=== PATIENT | female | born 1960 | race Caucasian/White ===

== ENCOUNTER 2020-05-20 22:25 | Emergency (ER) | payer BC ==
[2020-05-20 22:40] VITALS: BP 145/85; PULSE 79
--- NOTE | 2020-05-20 23:07 | EDM.PDOC ---
ED HPI GENERAL MEDICAL PROBLEM - General Chief Complaint: Upper Extremity Injury/Pain Stated Complaint: SORE RT THUMB Time Seen by Provider: 05/20/20 22:45 Source of Information: Reports: Patient History Limitations: Reports: No Limitations - History of Present Illness INITIAL COMMENTS - FREE TEXT/NARRATIVE: 60-year-old female with a developing infection around the thumbnail on the right hand for the past 2 days. It started when she got poked underneath the fingernail while doing dishes, and since that time she has had increased inflammation and redness and pain. Onset: Gradual Duration: Day(s): (3 days) Location: Reports: Upper Extremity, Right Right Finger-Thumb Pain Score (Numeric/FACES): 4 - Related Data Allergies Allergy/AdvReac Type Severity Reaction Status Date / Time No Known Allergies Allergy Verified 05/20/20 22:51 Home Meds: Home Meds Glucosamine/Chondroitin Sulf A [Glucosamine Chondroitin Cap] 1 tab PO DAILY 05/02/15 [History] Ibuprofen/Diphenhydramine HCl [Advil Pm Liqui-Gels] 2 tab PO BEDTIME PRN 05/02/15 [History] Past Medical History HEENT History: Reports: Impaired Vision, Otitis Media Other HEENT History: wears glasses [employer] History: Reports: Musculoskeletal History: Reports: Other (See Below) Other Musculoskeletal History: tennis elbow Endocrine/Metabolic History: Reports: Diabetes, Gestational Hematologic History: Reports: Anemia - Infectious Disease History Infectious Disease History: Reports: Chicken Pox - Past Surgical History HEENT Surgical History: Reports: Oral Surgery, Tonsillectomy Other HEENT Surgeries/Procedures: wisdom teeth extraction GI Surgical History: Reports: Appendectomy Social & Family History - Family History Family Medical History: No Pertinent Family History - Tobacco Use Tobacco Use Status *Q: Never Tobacco User - Caffeine Use Caffeine Use: Reports: None - Recreational Drug Use Recreational Drug Use: No Review of Systems - Review of Systems Review Of Systems: See Below Constitutional: Denies: Fever Respiratory: Reports: No Symptoms Cardiovascular: Reports: No Symptoms Genitourinary: Reports: No Symptoms Skin: Reports: Erythema (Some erythema developing around the thumbnail) Neurological: Denies: Paresthesia ED EXAM, GENERAL - Physical Exam Exam: See Below Exam Limited By: No Limitations General Appearance: Alert, No Apparent Distress Respiratory/Chest: No Respiratory Distress Extremities: Other (Exam is otherwise limited to the right hand. She has fairly tender early swelling and erythema around the paronychia of the thumb nail especially laterally, with a small amount of swelling and erythema extending to the pulp) Neurological: Alert, Oriented Psychiatric: Normal Affect, Normal Mood Course - Vital Signs Last Recorded V/S: Last Vital Signs Temp 98.1 F 05/20/20 22:49 Pulse 79 05/20/20 22:49 Resp 16 05/20/20 22:49 BP 145/85 H 05/20/20 22:49 Pulse Ox 96 05/20/20 22:49 - Re-Assessments/Exams Free Text/Narrative Re-Assessment/Exam: 05/20/20 23:05 Patient appears to be developing cellulitis around the thumbnail. She will be placed on Augmentin 875 mg twice daily for 7 days, encouraged to keep the thumb clean and warm, and recheck in 2 to 3 days if not improving. Departure - Departure Time of Disposition: 23:15 Disposition: Home, Self-Care 01 Clinical Impression: Cellulitis of right thumb - Discharge Information Instructions: Cellulitis, Adult Referrals: Radha Grimm PA [Primary Care Provider] - Forms: ED Department Discharge Care Plan Goals: Take antibiotic with food twice daily for at least 7 days, keep thumb clean and soaking in warm water or warm compresses may be beneficial. Ibuprofen will help with pain, and recheck in the next couple days if not improving with antibiotic. Sepsis Event Note (ED) - Evaluation Sepsis Screening Result: No Definite Risk - Focused Exam Vital Signs: Vital Signs Temp Pulse Resp BP Pulse Ox 05/20/20 22:49 98.1 F 79 16 145/85 H 96 05/20/20 22:39 98.1 F 79 16 145/85 H 96
== END 2020-05-20 23:15 | disposition home or self-care (01) ==
LOC: JP.ED 22:25
DX: L03.011 Cellulitis of right finger (principal)
CPT/HCPCS: 99283

== ENCOUNTER 2021-12-27 07:31 | Day surgery (SDC) | payer BC ==
[2021-12-27] MEDS ORDERED: Midazolam 1 MG/ML 2 ML SDV ONE (08:19)
[2021-12-27] MEDS ORDERED: fentaNYL 100 MCG/2 ML SDV ONE (08:19)
[2021-12-27] MEDS ORDERED: Propofol 200 MG/20 ML SDV ONE (08:19)
[2021-12-27] MEDS ORDERED: Sodium Chloride 0.9% 1,000 ML IV SCH (08:30)
[2021-12-27 11:12] VITALS: BP 127/70; PULSE 57
== END 2021-12-27 11:13 | disposition home or self-care (01) ==
LOC: JP.SDS 07:31
PROVIDERS: ATTEND Surgery
DX: Z12.11 Encounter for screening for malignant neoplasm of colon (principal); K63.5 Polyp of colon; M19.90 Unspecified osteoarthritis, unspecified site; Z80.0 Family history of malignant neoplasm of digestive organs; Z79.899 Other long term (current) drug therapy; Z79.83 Long term (current) use of bisphosphonates
CPT/HCPCS: 45385; J2250; J2704; J3010; J7030; 88305